=== PATIENT | female | born 1960 | race Asian ===

== ENCOUNTER 2023-11-28 11:22 | Emergency (ER) | payer OTHER ==
[2023-11-28 12:10] VITALS: BMI 19.3
[2023-11-28] MEDS ORDERED: LIDOCAINE 5% TOPICAL PATCH ONE (12:34)
[2023-11-28] MEDS: LIDOCAINE 5% TOPICAL PATCH TP ONE (12:38)
[2023-11-28] MEDS ORDERED: IBUPROFEN 400 MG TABLET (FP) PO ONE (13:02)
[2023-11-28] MEDS ORDERED: morphine SULFATE 4 MG/ML VIAL ONE (14:55)
[2023-11-28] MEDS: morphine CARPU-JECT 4 MG/1 ML DISP.SYRIN IM ONE (14:58)
[2023-11-28 17:01] VITALS: BP 130/74; RESP 17; TEMP 98
[2023-11-28 18:26] LABS: HEMATOCRIT 44.5 % (32.4-45.2); MCH 30.1 pg (25.7-33.7); MCHC 33.7 g/dl (32.0-36.0); MEAN CELL VOLUME 89.4 fl (80-96); MEAN PLT VOLUME 8.3 fl (7.5-11.1); PLATELET COUNT 209.8 10^3/uL (134-434); RBC 4.98 10^6/uL (3.60-5.2); RDW 13.4 % (11.6-15.6); WHITE BLOOD COUNT 5.3 10^3/uL (4.0-10.8)
[2023-11-28 18:27] LABS: INR 0.92 (0.83-1.09); PROTHROMBIN TIME (PATIENT) 10.5 SEC (9.7-13.0)
[2023-11-28 18:35] VITALS: PULSE 65
[2023-11-28 18:38] LABS: ALBUMIN 4.9 g/dl (3.4-5.0); BILIRUBIN,TOTAL 1.1 mg/dl (0.2-1); CALCIUM 10.1 mg/dl (8.5-10.1); CREATININE 0.6 mg/dl (0.6-1.3); POTASSIUM 3.9 mmol/L (3.5-5.1)
[2023-11-28] MEDS: morphine CARPU-JECT 2 MG/1 ML DISP.SYRIN IVPUSH ONE (19:18)
[2023-11-28] MEDS: CELECOXIB 200 MG CAPSULE PO ONE (19:19)
[2023-11-28] MEDS ORDERED: LIDOCAINE PATCH REMOVAL MC ONE (22:00)
== END 2023-11-28 19:20 | disposition short-term general hospital (02) ==
LOC: FER 11:22
PROC: 3E033NZ Introduction of Analgesics, Hypnotics, Sedatives into Peripheral Vein, Percutaneous Approach (ICD-10-PCS; principal; 2023-11-28)
PROC: 3E023GC Introduction of Other Therapeutic Substance into Muscle, Percutaneous Approach (ICD-10-PCS; 2023-11-28)
DX: S22.42XA Multiple fractures of ribs, left side, initial encounter for closed fracture (principal); W07.XXXA Fall from chair, initial encounter
CPT/HCPCS: 36415; 71045-TC-FY; 71101-TC-LT-FY; 71250-TC; 73010-TC-FY; 73030-TC-LT-FY; 73070-TC-LT-FY; 80053; 85027; 85610; 99285-25